=== PATIENT | female | born 1985 | race African-American/Black ===

== ENCOUNTER → 2016-09-21 | Outpatient (CLI) | payer OTHER ==
[~2016-09-21] MED LIST: CETI10 PO; FLUT50SP EACH NARE; GUAI100S5 PO; IBUP800T23 PO; METF500T PO; OMEP40CA2 PO; PHEN37.54 PO
--- NOTE | 2016-09-21 19:18 | EKG ---
Date Performed: 09/21/2016 Time Performed: 10:03:12 PTAGE: 31 years EKG: Sinus rhythm . Normal ECG NO PREVIOUS TRACING DOCTOR: Danyell Cage Interpretating Date/Time 09/21/2016 19:18:06
== END ==
LOC: HCAV 09:52
PROVIDERS: ATTEND Family Medicine
DX: R00.0 Tachycardia, unspecified (principal)
CPT/HCPCS: 93005

== ENCOUNTER → 2017-01-25 | Outpatient (CLI) | payer OTHER ==
[~2017-01-25] MED LIST changes: -GUAI100S5 PO; +HYDR50TA94 PO; -IBUP800T23 PO; +SERT25TA83 PO
--- NOTE | 2017-01-25 14:55 | RADRPT ---
EXAM DATE/TIME: 01/25/2017 14:27 [facility] COMPARISON: No previous studies available for comparison. INDICATIONS : Right shoulder pain after working out. MEDICAL HISTORY : None. SURGICAL HISTORY : None. ENCOUNTER: Initial ACUITY: 4 - 6 months PAIN SCORE: 6/10 LOCATION: Right shoulder, arm pit region. FINDINGS: Multiple view examination of the right shoulder demonstrates no evidence of fracture or dislocation. The glenohumeral and acromioclavicular joints are maintained. There is normal range of motion betwe en internal and external rotation. Bony mineralization is normal. CONCLUSION: Negative for significant degenerative changes. Lung apex clear. Hayden Day MD FACR on January 25, 2017 at 14:53 Board Certified Radiologist. This report was verified electronically.
--- NOTE | 2017-01-25 16:12 | RADRPT ---
EXAM DATE/TIME: 01/25/2017 14:46 [facility] COMPARISON: No previous studies available for comparison. INDICATIONS : Pain in right axilla. MEDICAL HISTORY : Anxiety. Pre-diabetic. SURGICAL HISTORY : Left leg surgery. ENCOUNTER: Initial ACUITY: 3 months PAIN SCORE: 3/10 LOCATION: Right axilla. AREA EVALUATED: Right axilla. FINDINGS: MASSES: None. FLUID COLLECTIONS: None. OTHER: Negative. CONCLUSION: 1. No masses identified Jerry Yanez MD on January 25, 2017 at 16:10 Board Certified Radiologist. This report was verified electronically.
== END ==
LOC: HRAD 14:10
PROVIDERS: ATTEND Family Medicine
DX: M25.511 Pain in right shoulder (principal); R22.31 Localized swelling, mass and lump, right upper limb
CPT/HCPCS: 73030; 76882

== ENCOUNTER 2017-07-03 13:50 | Emergency (ER) | payer OTHER ==
[~2017-07-03 13:50] MED LIST changes: +FLUO20CA12 PO; +MEDR10TA7 PO; -SERT25TA83 PO
[2017-07-03 13:59] VITALS: BP 158/97; PULSE 89; RESP 15; TEMP 98.5; O2SAT 100
--- NOTE | 2017-07-03 15:00 | RADRPT ---
EXAM DATE/TIME: 07/03/2017 14:34 [facility] COMPARISON: No previous studies available for comparison. INDICATIONS : Patient having back and chest pain for 3 days with no history of trauma. MEDICAL HISTORY : pre diabetes SURGICAL HISTORY : None. ENCOUNTER: Initial ACUITY: 3 days PAIN SCORE: 5/10 LOCATION: back and chest FINDINGS: PA and lateral views of the chest demonstrate the lungs to be symmetrically aerated without evidence of mass, infiltrate or effusion. The cardiomediastinal contours are unremarkable. Osseous structure s are intact. CONCLUSION: Normal examination. Yakov Wahl Jr., MD on July 03, 2017 at 14:58 Board Certified Radiologist. This report was verified electronically.
[2017-07-03 16:24] LABS: PROTHROMBIN TIME - PATIENT 10.1 SEC (9.8-11.6)
[2017-07-03 16:30] LABS: BICARBONATE 27.9 MEQ/L (21.0-32.0); BLOOD UREA NITROGEN 12 MG/DL (7-18); CALCIUM 8.7 MG/DL (8.5-10.1); CHLORIDE 103 MEQ/L (98-107); CREATININE 1.06 MG/DL (0.50-1.00); GLOMERULAR FILTRATION RATE 73 ML/MIN (>89); GLUCOSE,RANDOM 80 MG/DL (74-106); MAGNESIUM 1.9 MG/DL (1.5-2.5); SODIUM (NA) 139 MEQ/L (136-145)
[2017-07-03 16:31] LABS: BASOPHIL # 0.1 TH/MM3 (0-0.2); BASOPHIL % 0.6 % (0.0-2.0); EOSINOPHIL # 0.2 TH/MM3 (0-0.4); EOSINOPHIL % 2.2 % (0.0-4.0); HEMATOCRIT 39.3 % (35.0-46.0); HEMOGLOBIN 13.1 GM/DL (11.6-15.3); LYMPH % 29.7 % (9.0-44.0); MEAN CELL VOLUME 82.5 FL (80.0-100.0); MEAN CORPUSCULAR HEMOGLOBIN 27.5 PG (27.0-34.0); MEAN CORPUSCULAR HGB CONC 33.3 % (32.0-36.0); MEAN PLATELET VOLUME 9.4 FL (7.0-11.0); MONO % 7.6 % (0.0-8.0); MONOCYTE # 0.8 TH/MM3 (0-0.9); NEUT % 59.9 % (16.0-70.0); PLATELET COUNT 211 TH/MM3 (150-450); RED BLOOD COUNT 4.76 MIL/MM3 (4.00-5.30); RED CELL DISTRIBUTION WIDTH 14.6 % (11.6-17.2)
[2017-07-03 16:35] LABS: TROPONIN I LESS THAN 0.02 NG/ML (0.02-0.05)
--- NOTE | 2017-07-03 17:11 | PD ---
HPI Chief Complaint: Chest Pain Time Seen by Provider: 13:59 Travel History International Travel<30 days: No Contact w/Intl Traveler<30days: No Traveled to known affect area: No History of Present Illness HPI 31-year-old female presents to the emergency department for evaluation of substernal chest pain 3 days. Pain radiates to her back. No shortness of breath. She has had no nausea vomiting. No fever or chills. No episodes of diaphoresis or lightheadedness sensation. Patient has no other symptoms to report at this time. [facility] Past Medical History Medical History: Denies Significant Hx Diminished Hearing: No Immunizations Current: Yes : 0 Social History Alcohol Use: No Tobacco Use: No Substance Use: No Allergies-Medications (Allergen,Severity, Reaction): Coded Allergies: No Known Allergies (Verified , 02/17/17) Reported Meds & Prescriptions Reported Meds & Active Scripts Active Fluoxetine (Fluoxetine HCl) 20 Mg Capsule 20 Mg PO DAILY Fluticasone Nasal [place] 50 Mcg/Act Naspr 100 Mcg EACH NARE DAILY 50 mcg/spray Cetirizine (Cetirizine HCl) 10 Mg Tab 10 Mg PO DAILY Medroxyprogesterone Acetate 10 Mg Tab 10 Mg PO DAILY Start anytime, take for 7-10 days. You should then have a withdrawal bleed within a week. Hydroxyzine HCl 50 Mg Tab 50 Mg PO QID PRN Omeprazole 40 Mg Cap 40 Mg PO DAILY PRN Metformin (Metformin HCl) 500 Mg Tab 500 Mg PO DAILY With meals Phentermine (Phentermine HCl) 37.5 Mg Cap 37.5 Mg PO DAILY Review of Systems Except as stated in HPI: all other systems reviewed are Neg Physical Exam Narrative Well-nourished female patient, ambulatory and in no acute distress. She appears nontoxic. She has even respirations. Regular heart rate. Abdomen is nondistended. She has no obvious deformities. She moves all extremities freely. She speaks clearly to me. Data Data Last Documented VS Vital Signs Date Time Temp Pulse Resp B/P (MAP) Pulse Ox O2 Delivery O2 Flow Rate FiO2 07/03/17 13:59 98.5 89 15 158/97 (117) 100 Orders Orders Electrocardiogram (07/03/17 14:09) Basic Metabolic Panel (Bmp) (07/03/17 14:09) Ckmb (Isoenzyme) Profile (07/03/17 14:09) Complete Blood Count With Diff (07/03/17 14:09) Magnesium (Mg) (07/03/17 14:09) Prothrombin Time / Inr (Pt) (07/03/17 14:09) Act Partial Throm Time (Ptt) (07/03/17 14:09) Troponin I (07/03/17 14:09) Lipase (07/03/17 14:09) Chest, Pa & Lat (07/03/17 14:09) CKMB (07/03/17 15:00) CKMB% (07/03/17 15:00) Labs Laboratory Tests Test 07/03/17 15:00 White Blood Count 10.0 TH/MM3 Red Blood Count 4.76 MIL/MM3 Hemoglobin 13.1 GM/DL Hematocrit 39.3 % Mean Corpuscular Volume 82.5 FL Mean Corpuscular Hemoglobin 27.5 PG Mean Corpuscular Hemoglobin Concent 33.3 % Red Cell Distribution Width 14.6 % Platelet Count 211 TH/MM3 Mean Platelet Volume 9.4 FL Neutrophils (%) (Auto) 59.9 % Lymphocytes (%) (Auto) 29.7 % Monocytes (%) (Auto) 7.6 % Eosinophils (%) (Auto) 2.2 % Basophils (%) (Auto) 0.6 % Neutrophils # (Auto) 6.0 TH/MM3 Lymphocytes # (Auto) 3.0 TH/MM3 Monocytes # (Auto) 0.8 TH/MM3 Eosinophils # (Auto) 0.2 TH/MM3 Basophils # (Auto) 0.1 TH/MM3 CBC Comment DIFF FINAL Differential Comment Prothrombin Time 10.1 SEC Prothromb Time International Ratio 1.0 RATIO Activated Partial Thromboplast Time 27.1 SEC Blood Urea Nitrogen 12 MG/DL Creatinine 1.06 MG/DL Random Glucose 80 MG/DL Calcium Level 8.7 MG/DL Magnesium Level 1.9 MG/DL Sodium Level 139 MEQ/L Potassium Level 3.7 MEQ/L Chloride Level 103 MEQ/L Carbon Dioxide Level 27.9 MEQ/L Anion Gap 8 MEQ/L Estimat Glomerular Filtration Rate 73 ML/MIN Total Creatine Kinase 203 U/L Creatine Kinase MB LESS THAN 0.5 NG/ML Creatine Kinase MB % 0.2 % Troponin I LESS THAN 0.02 NG/ML Lipase 176 U/L MDM Medical Decision Making Medical Screen Exam Complete: Yes Emergency Medical Condition: Yes Medical Record Reviewed: Yes Differential Diagnosis Anxiety versus ACS versus chest wall pain versus pleuritic pain Narrative Course 31-year-old female presents to the emergency department for evaluation of chest pain 3 days. Patient appears nontoxic. Her vital signs are stable. Workup is initiated in triage. Prior to the placement, patient chooses to leave. AMA: The risks of leaving against medical advice without further evaluation treatment were discussed with the patient. These risks include cardiac dysfunction, cardiac dysrhythmia, possible heart attack, possible stroke or . The patient indicated understanding of these risks and appeared to have the capacity to make this decision. Diagnosis Primary Impression: Chest pain Disposition: 07 AGAINST MEDICAL ADVICE Condition: Stable Nelly Hardy Jul 03, 2017 17:11
--- NOTE | 2017-07-04 18:59 | EKG ---
Date Performed: 07/03/2017 Time Performed: 15:01:34 PTAGE: 31 years EKG: Sinus rhythm WITH SINUS ARRHYTHMIA NORMAL ECG Since the prior tracing, there has been no significant change PREVIOUS TRACING : 09/21/2016 10.03 DOCTOR: Lionel Everett Interpretating Date/Time 07/04/2017 18:57:06
== END 2017-07-03 16:54 | disposition left against medical advice (07) ==
LOC: NED 13:50
DX: R07.2 Precordial pain (principal); Z53.21 Procedure and treatment not carried out due to patient leaving prior to being seen by health care provider; Z79.899 Other long term (current) drug therapy
CPT/HCPCS: 71046; 80048; 82550; 82552; 83690; 83735; 84484; 85025; 85610; 85730; 93005